=== PATIENT | male | born 1970 | race Caucasian/White ===

== ENCOUNTER 2021-04-01 22:35 | Inpatient (IN) ==
[2021-04-02 01:01] LABS: Basophils % 0.3 %; Eosinophils # 0.2 K/mcL (0.0-0.6); Eosinophils % 1.9 %; Hematocrit 43.2 % (37.5-50.1); Hemoglobin 14.5 g/dL (12.9-16.9); Immature Granulocytes % 0.4 % (0-4); Lymphocytes # 3.2 K/mcL (0.6-4.6); Lymphocytes % 32.9 %; Mean Corpuscular HGB Conc 33.6 g/dL (31.6-35.5); Mean Corpuscular Hemoglobin 30.3 pg (28.0-33.3); Mean Corpuscular Volume 90.4 fL (83.0-100.0); Mean Platelet Volume 10.7 fL (9.4-12.4); Monocytes # 0.9 K/mcL (0.0-1.3); Monocytes % 9.3 %; Neutrophils # 5.4 K/mcL (1.6-8.9); Platelet Count 185 K/mcL (140-400); Red Blood Count 4.78 M/mcL (4.19-5.50); Red Cell Distribution Width 12.5 % (11.5-14.5); Segmented Neutrophils % 55.2 %; White Blood Count 9.9 K/mcL (4.3-11.1)
[2021-04-02 01:10] LABS: Estimated Average Glucose 111 mg/dl; Hemoglobin A1C 5.5 %
[2021-04-02 01:11] LABS: Amphetamine Screen,Urine Negative ng/mL (Cutoff=1000); Barbiturate Screen,Urine Negative ng/mL (Cutoff=200); Benzodiazepines Screen,Urine Negative ng/mL (Cutoff=200); Bilirubin,Urine Negative (Negative); Blood,Urine Negative (Negative); Cannabinoid Screen,Urine Negative ng/mL (Cutoff = 50); Clarity,Urine Clear (Clear); Cocaine Screen,Urine Negative ng/mL (Cutoff= 300); Color,Urine Light-Yellow (Yellow); Glucose,Urine (UA) Normal (Normal); Ketones,Urine Negative (Negative); Leukocyte Esterase,Urine Negative (Negative); Nitrite,Urine Negative (Negative); Opiate Screen,Urine Negative ng/mL (Cutoff=300); PH,Urine 6.5 pH Units (5.0-8.0); Phencyclidine Screen,Urine Negative ng/mL (Cutoff=25); Protein,Urine Negative (Neg-Trace); Specific Gravity,Urine 1.014 (1.010-1.025); Urobilinogen,Urine Normal (Normal)
[2021-04-02 01:13] LABS: Acetaminophen < 10 mcg/mL (10-20); BUN/Creatinine Ratio 16 (6-26); Blood Urea Nitrogen 12 mg/dL (6-20); Calcium 9.3 mg/dL (8.6-10.3); Carbon Dioxide 31 mEq/L (23-29); Chloride 100 mEq/L (98-107); Chol/HDL Ratio 2.5 (0-4.9); Cholesterol 108 mg/dL (< 200); Ethanol < 10 mg/dL (Less than 10); Glucose 107 mg/dL (70-105); HDL Cholesterol 44 mg/dL (40-59); LDL Cholesterol,Calculated 43 mg/dL (< 100); Osmolality,Calculated 286 (280-300); Potassium 3.7 mEq/L (3.5-5.1); Salicylate < 2.5 mg/dL (15.0-30.0); Sodium 138 mEq/L (136-145); Triglycerides 104 mg/dL (< 150); eGFR For African Americans > 60 (> 60); eGFR For Non-African Americans > 60 (> 60)
[2021-04-02 04:57] LABS: Influenza A PCR Negative (Negative); Influenza B PCR Negative (Negative); Resp. Syncytial Virus PCR Negative (Negative)
[2021-04-02 04:58] LABS: SARS-CoV-2 by PCR (In House) Negative (Negative)
[2021-04-02] MEDS ORDERED: traZODone 50 MG TABLET PO PRN (05:27)
[2021-04-02] MEDS ORDERED: Haloperidol Lactate 5 MG/ML VIAL IM PRN (05:27)
[2021-04-02] MEDS ORDERED: *HR* LORazepam 2 MG/ML VIAL IM PRN (05:27)
[2021-04-02] MEDS ORDERED: Ibuprofen 400 MG TABLET PO PRN (05:27)
[2021-04-02] MEDS ORDERED: Mag Hydrox/Al Hydrox/Simeth 30 ML UDC PO PRN (12:12)
[2021-04-02] MEDS ORDERED: MOM Conc 10 ML UD.LIQ PO PRN (12:12)
[2021-04-02] MEDS: risperiDONE 1 MG TABLET PO SCH (21:00)
[2021-04-03] MEDS: BuPROPion XL (24 HR) 150 MG TABLET PO SCH (08:40)
[2021-04-03] MEDS: risperiDONE 1 MG TABLET PO SCH ×2 (08:40→21:09)
[2021-04-04] MEDS: BuPROPion XL (24 HR) 150 MG TABLET PO SCH (08:57)
[2021-04-04] MEDS: risperiDONE 1 MG TABLET PO SCH ×2 (08:57→20:46)
[2021-04-05] MEDS: risperiDONE 1 MG TABLET PO SCH (08:51)
[2021-04-05] MEDS: BuPROPion XL (24 HR) 150 MG TABLET PO SCH (08:51)
[2021-04-06] MEDS: risperiDONE 1 MG TABLET PO SCH ×2 (08:48→20:26)
[2021-04-06] MEDS: BuPROPion XL (24 HR) 150 MG TABLET PO SCH (08:48)
[2021-04-07] MEDS: Acetaminophen 325 MG TABLET PO PRN (21:40)
[2021-04-07] MEDS: risperiDONE 1 MG TABLET PO SCH (21:40)
[2021-04-08] MEDS: *HR* LORazepam 1 MG TABLET PO PRN (06:07)
[2021-04-08] MEDS: haloperidoL 5 MG TABLET PO PRN (06:07)
[2021-04-08] MEDS: Acetaminophen 325 MG TABLET PO PRN (20:35)
[2021-04-08] MEDS: risperiDONE 1 MG TABLET PO SCH (20:35)
[2021-04-08] MEDS: hydrOXYzine pamoate 25 MG CAPSULE PO PRN (20:35)
[2021-04-09] MEDS: risperiDONE 1 MG TABLET PO SCH (20:36)
[2021-04-09] MEDS: QUEtiapine Fumarate 100 MG TABLET PO PRN (20:37)
[2021-04-09] MEDS: hydrOXYzine pamoate 25 MG CAPSULE PO PRN (20:37)
[2021-04-10] MEDS: QUEtiapine Fumarate 100 MG TABLET PO PRN (21:03)
[2021-04-10] MEDS: hydrOXYzine pamoate 25 MG CAPSULE PO PRN (21:03)
[2021-04-10] MEDS: Acetaminophen 325 MG TABLET PO PRN (21:04)
[2021-04-10] MEDS: risperiDONE 1 MG TABLET PO SCH (21:04)
[2021-04-11] MEDS ORDERED: RisperiDONE-M 1 MG TAB.RAPDIS PO STA (10:15)
[2021-04-11] MEDS: haloperidoL 5 MG TABLET PO PRN (12:37)
[2021-04-11] MEDS: *HR* LORazepam 1 MG TABLET PO PRN (12:37)
[2021-04-11] MEDS: RisperiDONE-M 1 MG TAB.RAPDIS PO SCH (21:42)
[2021-04-12] MEDS: Acetaminophen 325 MG TABLET PO PRN (20:03)
[2021-04-12] MEDS: RisperiDONE-M 1 MG TAB.RAPDIS PO SCH (20:04)
[2021-04-13] MEDS: *HR* LORazepam 1 MG TABLET PO PRN (00:50)
[2021-04-13] MEDS: haloperidoL 5 MG TABLET PO PRN (00:50)
[2021-04-13 13:13] LABS: Basophils % 0.3 %; Eosinophils # 0.2 K/mcL (0.0-0.6); Eosinophils % 2.1 %; Hematocrit 47.9 % (37.5-50.1); Hemoglobin 16.1 g/dL (12.9-16.9); Immature Granulocytes % 0.1 % (0-4); Lymphocytes # 2.4 K/mcL (0.6-4.6); Lymphocytes % 34.5 %; Mean Corpuscular HGB Conc 33.6 g/dL (31.6-35.5); Mean Corpuscular Hemoglobin 30.8 pg (28.0-33.3); Mean Corpuscular Volume 91.6 fL (83.0-100.0); Mean Platelet Volume 11.2 fL (9.4-12.4); Monocytes # 0.4 K/mcL (0.0-1.3); Monocytes % 5.7 %; Platelet Count 220 K/mcL (140-400); Red Blood Count 5.23 M/mcL (4.19-5.50); Red Cell Distribution Width 12.7 % (11.5-14.5); Segmented Neutrophils % 57.3 %
[2021-04-13 13:39] LABS: Alanine Aminotransferase 17 Units/L (7-52); Albumin 4.4 g/dL (3.5-5.7); Albumin/Globulin Ratio 1.7 (1.1-2.2); Alkaline Phosphatase 83 Units/L (34-104); Aspartate Amino Transferase 16 Units/L (13-39); BUN/Creatinine Ratio 20 (6-26); Bilirubin,Total 0.6 mg/dL (0.3-1.0); Blood Urea Nitrogen 18 mg/dL (6-20); Calcium 9.6 mg/dL (8.6-10.3); Carbon Dioxide 28 mEq/L (23-29); Chloride 103 mEq/L (98-107); Globulin 2.6 g/dL (2.4-3.5); Glucose 174 mg/dL (70-105); Osmolality,Calculated 288 (280-300); Potassium 3.7 mEq/L (3.5-5.1); Sodium 136 mEq/L (136-145); eGFR For African Americans > 60 (> 60); eGFR For Non-African Americans > 60 (> 60)
[2021-04-13] MEDS: RisperiDONE-M 1 MG TAB.RAPDIS PO SCH (20:23)
[2021-04-13] MEDS: hydrOXYzine pamoate 25 MG CAPSULE PO PRN (20:27)
[2021-04-13] MEDS: traZODone 50 MG TABLET PO PRN (20:27)
[2021-04-14 20:18] VITALS: O2SAT 94
[2021-04-14] MEDS: hydrOXYzine pamoate 25 MG CAPSULE PO PRN (20:43)
[2021-04-14] MEDS: traZODone 50 MG TABLET PO PRN (20:43)
[2021-04-14] MEDS: RisperiDONE-M 1 MG TAB.RAPDIS PO SCH (20:43)
[2021-04-15 09:44] VITALS: BP 111/73; PULSE 78; TEMP 98.4
== END 2021-04-15 17:20 | disposition home or self-care (01) | DRG 885 ==
LOC: EMEROOARM 22:35 → 1ANU 04-02 05:04
PROVIDERS: ADMIT Psychiatry & Neurology Psychiatry; ATTEND Psychiatry & Neurology Psychiatry

== ENCOUNTER 2021-04-20 18:58 | Inpatient (IN) ==
[2021-04-20 20:52] LABS: Basophils % 0.3 %; Eosinophils # 0.1 K/mcL (0.0-0.6); Eosinophils % 1.3 %; Hematocrit 48.7 % (37.5-50.1); Hemoglobin 16.3 g/dL (12.9-16.9); Immature Granulocytes % 0.2 % (0-4); Lymphocytes # 2.8 K/mcL (0.6-4.6); Lymphocytes % 30.5 %; Mean Corpuscular HGB Conc 33.5 g/dL (31.6-35.5); Mean Corpuscular Hemoglobin 30.8 pg (28.0-33.3); Mean Corpuscular Volume 91.9 fL (83.0-100.0); Mean Platelet Volume 10.6 fL (9.4-12.4); Monocytes # 0.7 K/mcL (0.0-1.3); Neutrophils # 5.6 K/mcL (1.6-8.9); Platelet Count 221 K/mcL (140-400); Red Cell Distribution Width 13.2 % (11.5-14.5); Segmented Neutrophils % 60.7 %; White Blood Count 9.2 K/mcL (4.3-11.1)
[2021-04-20 20:59] LABS: Estimated Average Glucose 111 mg/dl; Hemoglobin A1C 5.5 %
[2021-04-20 21:26] LABS: Acetaminophen < 10 mcg/mL (10-20); BUN/Creatinine Ratio 24 (6-26); Blood Urea Nitrogen 22 mg/dL (6-20); Calcium 9.8 mg/dL (8.6-10.3); Carbon Dioxide 26 mEq/L (23-29); Chloride 103 mEq/L (98-107); Ethanol < 10 mg/dL (Less than 10); Glucose 91 mg/dL (70-105); Osmolality,Calculated 291 (280-300); Potassium 4.2 mEq/L (3.5-5.1); Salicylate < 2.5 mg/dL (15.0-30.0); Sodium 139 mEq/L (136-145); eGFR For African Americans > 60 (> 60); eGFR For Non-African Americans > 60 (> 60)
[2021-04-20 21:40] LABS: Thyroid Stimulating Hormone 1.104 mcIU/mL (0.340-5.600)
[2021-04-20] MEDS ORDERED: *HR* LORazepam 2 MG/ML VIAL IM ONE (21:57)
[2021-04-20] MEDS ORDERED: Haloperidol Lactate 5 MG/ML VIAL IM ONE (21:57)
[2021-04-20 23:55] LABS: Bilirubin,Urine Negative (Negative); Blood,Urine Negative (Negative); Clarity,Urine Clear (Clear); Color,Urine Yellow (Yellow); Glucose,Urine (UA) Normal (Normal); Hyaline Casts,Urine Few per lpf (None Seen); Ketones,Urine 20 mg/dL (Negative); Leukocyte Esterase,Urine Negative (Negative); Mucus,Urine Many per lpf (None-Few); Nitrite,Urine Negative (Negative); Protein,Urine 50 mg/dL (Neg-Trace); Specific Gravity,Urine > 1.030 (1.010-1.025); Urobilinogen,Urine Normal (Normal)
[2021-04-21 00:04] LABS: Amphetamine Screen,Urine Negative ng/mL (Cutoff=1000); Barbiturate Screen,Urine Negative ng/mL (Cutoff=200); Benzodiazepines Screen,Urine Negative ng/mL (Cutoff=200); Cannabinoid Screen,Urine Negative ng/mL (Cutoff = 50); Cocaine Screen,Urine Negative ng/mL (Cutoff= 300); Opiate Screen,Urine Negative ng/mL (Cutoff=300); Phencyclidine Screen,Urine Negative ng/mL (Cutoff=25)
[2021-04-21 07:08] LABS: Influenza A PCR Negative (Negative); Influenza B PCR Negative (Negative); Resp. Syncytial Virus PCR Negative (Negative); SARS-CoV-2 by PCR (In House) Negative (Negative)
[2021-04-21] MEDS ORDERED: *HR* LORazepam 2 MG/ML VIAL IM PRN (12:26)
[2021-04-21] MEDS ORDERED: Nicotine 21 MG PATCH.TD24 TD PRN (12:26)
[2021-04-21] MEDS ORDERED: MOM Conc 10 ML UD.LIQ PO PRN (12:26)
[2021-04-21] MEDS ORDERED: Haloperidol Lactate 5 MG/ML VIAL IM PRN (12:26)
[2021-04-21] MEDS ORDERED: haloperidoL 5 MG TABLET PO PRN (12:26)
[2021-04-21] MEDS ORDERED: Mag Hydrox/Al Hydrox/Simeth 30 ML UDC PO PRN (12:26)
[2021-04-21] MEDS ORDERED: *HR* LORazepam 1 MG TABLET PO PRN (12:26)
[2021-04-21] MEDS: QUEtiapine Fumarate 25 MG TABLET PO PRN (20:57)
[2021-04-21] MEDS: hydrOXYzine pamoate 25 MG CAPSULE PO PRN (20:57)
[2021-04-21] MEDS: Acetaminophen 325 MG TABLET PO PRN (20:57)
[2021-04-21] MEDS ORDERED: RisperiDONE-M 1 MG TAB.RAPDIS PO SCH (21:00)
[2021-04-22] MEDS: RisperiDAL 3 MG TABLET PO SCH (21:29)
[2021-04-22] MEDS: QUEtiapine Fumarate 25 MG TABLET PO PRN (21:29)
[2021-04-22] MEDS: hydrOXYzine pamoate 25 MG CAPSULE PO PRN (21:29)
[2021-04-23] MEDS: RisperiDAL 3 MG TABLET PO SCH (20:49)
[2021-04-23] MEDS: QUEtiapine Fumarate 25 MG TABLET PO PRN (20:49)
[2021-04-24] MEDS: risperiDONE 1 MG TABLET PO SCH ×2 (21:39→21:52)
[2021-04-25] MEDS ORDERED: RisperiDONE-M 1 MG TAB.RAPDIS PO ONE (08:07)
[2021-04-25] MEDS: RisperiDONE-M 1 MG TAB.RAPDIS PO SCH (22:35)
[2021-04-26] MEDS: RisperiDONE-M 1 MG TAB.RAPDIS PO SCH (21:02)
[2021-04-27] MEDS: RisperiDONE-M 1 MG TAB.RAPDIS PO SCH (20:35)
[2021-04-28] MEDS: RisperiDONE-M 1 MG TAB.RAPDIS PO SCH (20:38)
[2021-04-28] MEDS: QUEtiapine Fumarate 25 MG TABLET PO PRN (23:56)
[2021-04-29] MEDS: RisperiDONE-M 1 MG TAB.RAPDIS PO SCH (21:27)
[2021-04-30] MEDS: RisperiDONE-M 1 MG TAB.RAPDIS PO SCH (20:16)
[2021-05-01] MEDS: RisperiDONE-M 1 MG TAB.RAPDIS PO SCH (20:30)
[2021-05-01] MEDS: Acetaminophen 325 MG TABLET PO PRN (20:31)
[2021-05-01] MEDS: QUEtiapine Fumarate 25 MG TABLET PO PRN (22:35)
[2021-05-01] MEDS: hydrOXYzine pamoate 25 MG CAPSULE PO PRN (22:35)
[2021-05-02 08:51] VITALS: BP 126/79; PULSE 108; TEMP 98.8; O2SAT 93
== END 2021-05-02 10:55 | disposition home or self-care (01) | DRG 885 ==
LOC: EMEROOARM 18:58 → 1ANU 04-21 17:23
PROVIDERS: ADMIT Psychiatry & Neurology Psychiatry; ATTEND Psychiatry & Neurology Psychiatry